=== PATIENT | female | born 1940 | race Caucasian/White ===

== ENCOUNTER 2017-10-08 07:26 | Inpatient (IN) | payer OTHER ==
--- NOTE | 2017-10-08 07:44 | EDPHY ---
H & P Stated Complaint: AMS Time Seen by Provider: 10/08/17 07:32 Constitutional: Initial Vital Signs Temperature (C) 36.8 C 10/08/17 07:35 Heart Rate 95 10/08/17 07:35 Respiratory Rate 20 10/08/17 07:35 Blood Pressure 120/64 10/08/17 07:35 O2 Sat (%) 95 10/08/17 07:35 O2 Delivery Mode Nasal Cannula O2 (L/minute) 4 Allergies/Adverse Reactions: acetaminophen [From Tylenol] Allergy (Verified 10/08/17 07:45) dexamethasone Allergy (Verified 10/08/17 07:45) hydralazine Allergy (Verified 10/08/17 07:45) hydrochlorothiazide Allergy (Verified 10/08/17 07:45) lovastatin Allergy (Verified 10/08/17 07:45) reserpine Allergy (Verified 10/08/17 07:45) Home Medications: Medication Instructions Recorded Aspirin [Aspirin 81mg (*)] 81 mg PO DAILY 10/08/17 Atorvastatin Calcium [Lipitor 20 20 mg PO HS 10/08/17 mg (*)] Clopidogrel Bisulfate [Plavix (*)] 75 mg PO DAILY 10/08/17 Cyanocobalamin [Vitamin B12 (*)] 1,000 mcg PO DAILY 10/08/17 DULoxetine [Cymbalta 30 MG (*)] 30 mg PO DAILY 10/08/17 Ferrous Sulfate [Ferrous Sulf 325 325 mg PO DAILY 10/08/17 MG (*)] Herbals/Supplements -Info Only 1 ea PO DAILY 10/08/17 Hydrocortisone 2.5% 1 estefany TP TID PRN 10/08/17 [Hydrocortisone 2.5% cream (*)] Insulin Pump, Patient Own 1 ea MISC AD 10/08/17 Levothyroxine [Synthroid 75 mcg 75 mcg PO DAILY06 10/08/17 (*)] Losartan Potassium [Cozaar 50 mg 50 mg PO DAILY 10/08/17 (*)] Metoprolol Succinate Xr [Toprol Xl 12.5 mg PO DAILY 10/08/17 25 mg (*)] Multivitamins [Multivitamin (*)] 1 each PO DAILY 10/08/17 Pantoprazole Sodium [Protonix 40mg 40 mg PO DAILY 10/08/17 (*)] levETIRAcetam [Keppra Oral Liquid] 250 mg PO BIDMEAL 10/08/17 Medical Decision Making - Diagnostics Imaging Results: Imaging Impressions Chest X-Ray 10/08/17 07:34 Impression: 1. Suspect pneumonia. Cannot exclude underlying chronic diffuse interstitial lung disease. Recommendation: Follow-up routine PA and lateral chest or portable exam with attempted improved inspiration when the patient is clinically able. Head CT 10/08/17 07:34 Impression: 1. No acute intracranial hemorrhage. 2. Post surgical change of right frontotemporal craniotomy with large area of encephalomalacia/gliosis in right frontal lobe compatible with patient's reported history of previous hemorrhagic infarct. 3. Right cerebellar and medullary well delineated low attenuation foci as described. No prior studies are available for comparison. Given no mass effect these may represent subacute/chronic infarcts, however MRI is recommended for evaluation of acute ischemia as clinically warranted. Dr. Vela was notified of these findings by telephone at 8:05 AM on 10/08/2017. Brain MRI 10/08/17 08:12 Impression: 1. 2 separate areas of acute ischemia within the right cerebellar hemisphere. There is also a small punctate area of cortical ischemia in the right parietal region. 2. Subacute left frontal ischemic infarction with gyral T1 hyperintensity. 3. Extensive remote encephalomalacia of the right frontal lobe. Prior right frontal craniotomy. Results called to Dr. Ankur Vela at 12:20 PM. Imaging: Discussed imaging studies w/ hse coordinator Radiologist ED Course/Re-evaluation: CHIEF COMPLAINT: Altered mental status HISTORY OF PRESENT ILLNESS: 77-year-old female who is an insulin-dependent diabetic. Before getting out of bed this morning her heard her insulin pump going off that noted low blood sugar. She was unarousable and her called EMS. When EMS arrived they confirm blood sugar twice. Both times it was significantly above 200. The patient was still only responsive to pain. She received an IO in the left humerus. She had stable vital signs EN route. According to the this patient was recently hospitalized for a questionable cardiac issue at [facility] was just discharged a couple days ago. EN route the patient did become slightly more arousable to voice. REVIEW OF SYSTEMS: A 10 point review of systems was performed and is negative with the exception of the elements mentioned in the history of present illness. Although the patient does not have good recollection of this morning she does not have any specific complaints at this time. PHYSICAL EXAM: HR, BP, O2 Sat, RR. Temp noted General Appearance: The more I talked to her the more arousable she becomes she is now responding to my questions and commands., well hydrated, appropriate , and non-toxic appearing. Head: Atraumatic without scalp tenderness or obvious injury Eyes: Pupils equal, round, reactive to light and accommodation, EOMI, no trauma , no injection. Ears: Clear bilaterally, no perforation, normal landmarks Nose: Atraumatic, no rhinorrhea, clear. Throat: There is no erythema or exudates, no lesions, normal tonsils, mucus membranes moist. Neck: Supple, 2+ carotid upstroke, nontender, no lymphadenopathy. Respiratory: No retractions, no distress, no wheezes, and no accessory muscle use. Lungs are clear to auscultation bilaterally. Cardiovascular: Regular rate and rhythm, no murmurs, rubs, or gallops. Bilateral carotid, radial, dorsalis pedis, and posterior tibial pulses intact. Good capillary refill all extremities. Gastrointestinal: Abdomen is soft, nontender, non-distended, no masses, no rebound, no guarding, no peritoneal signs. Musculoskeletal: Normal active ROM of all extremities, atraumatic. Neurological: Alert, appropriate, and interactive. The patient has normal DTRs and non-focal cranial nerves, motor, sensory, and cerebellar exam. Skin: No rashes, good turgor, no nodules on palpation. Past medical history: Diabetes and potential cardiac issue history is unobtainable until arrives Past surgical history: Unknown due to patient's condition Family history: Unknown due to patient's condition Social history: Unknown due to patient's condition except the fact that she lives at home with her according to EMS DIAGNOSTICS/PROCEDURES/CRITICAL CARE TIME: The 12 lead EKG was interpreted by myself. See hard copy and/or "tracemaster" electronic copy for interpretation. Anterior inverted T-waves possibly representing ischemia. I am obtaining the old EKG from [facility] from last week. Study: [CT of the head without contrast] Indication: [Altered mental status] Results: CT scan of the head was obtained. The results of the study are no acute findings except for possible brainstem findings which require MRI follow- up. The study was read by the radiologist, Dr. Art Donovan. I viewed the images myself on the PACS system. DIFFERENTIAL DIAGNOSIS: The differential diagnosis for the patient's altered mental status included but was not limited to hypoglycemia, infectious process, electrolyte abnormality, head injury, neurologic process, anemia, cardiac process, and intoxicants. MEDICAL DECISION MAKING: This patient presents with altered mental status. She does have a reasonable blood sugar so I do not believe she had a low blood sugar episode this morning although that is still certainly possible. She is becoming more more arousable. She does have a history of a hemorrhagic stroke according to her who just arrived. This patient has a nonfocal neurologic exam. She is following my commands more more the more I examine her and talk to her. Her i-STAT chemistry came back abnormal regarding the H&H but I will retest status she does not look pale. She has a slightly low potassium otherwise her kidney function and electrolytes look fine. Her or i-STAT troponin came back elevated 1.5. We are obtaining records from [facility]. EKGs from [facility] show the same changes these are old. Additionally, her repeat I-STAT shows normal blood counts. I spent a total of 30 minutes of critical care time including but not limited to obtaining history, performing a physical exam, ordering interventions and the bedside monitoring of those interventions, collecting and interpreting tests and discussion with consultants but not including time spent performing procedures. This is independent of PA or [employer] time spent with the patient. Unable to obtain urine for a UA via straight cath. Laboratory studies reflect mild dehydration. Plan to administer IVF. Patient is not septic. Vitals are within normal limits and not suggestive of sepsis. Her lactaid mildly elevated, likely due to her dehydration. I am checking a repeat lactaid due to her hypoperfusion. 09:48 Spoke with hospitalist service. Dr. Hicks accepts admission. 12:[address] Lim, radiologist. MRI brain shows two separate areas of acute ischemia within the right cerebellar hemisphere. Subacute left frontal area of ischemia. As the patient woke with symptoms, time of onset is not known. This patient does not meet criteria for stroke alert or tPA administration due to unknown onset of deficits. - Data Points Laboratory Results: Laboratory Results 10/08/17 07:35 10/08/17 07:35 10/08/17 10/08/17 10/08/17 08:25 07:44 07:35 WBC RBC Hgb POC Hgb 12.2 gm/dL L gm/dL (12.6-16.3) Hct POC Hct 36 % L % (38-47) MCV MCH MCHC RDW Plt Count MPV Neut % (Auto) Lymph % (Auto) [place] % (Auto) Eos % (Auto) Baso % (Auto) Nucleat RBC Rel Count Absolute Neuts (auto) Absolute Lymphs (auto) Absolute Monos (auto) Absolute Eos (auto) Absolute Basos (auto) Absolute Nucleated RBC Immature Gran % Seg Neutrophils % Band Neutrophils % Lymphocytes % Monocytes % Eosinophils % Basophils % Metamyelocytes % Myelocytes % Promyelocytes % Blast Cells % Immature Gran # Absolute Seg Neuts Absolute Band Neuts Absolute Lymphocytes Absolute Monocytes Absolute Eosinophils Absolute Basophils Absolute Metamyelocyte Absolute Myelocytes Absolute Promyelocytes Absolute Plasma Cells RBC/WBC/PLT Morphology Absolute Blast Cells Plasma Cells % Platelet Estimate Smear Review By PT INR APTT VBG Lactic Acid 2.7 mmol/L H mmol/L (0.7-2.1) POC Sodium 136 mEq/L mEq/L (135-145) Sodium 135 mEq/L mEq/L (135-145) POC Potassium 4.7 mEq/L mEq/L (3.3-5.0) Potassium 4.9 mEq/L mEq/L (3.3-5.0) POC Chloride 99 mEq/L mEq/L (97-110) Chloride 102 mEq/L mEq/L (97-110) Carbon Dioxide 27 mEq/l mEq/l (22-31) Anion Gap 6 mEq/L L mEq/L (8-16) POC BUN 26 mg/dL H mg/dL (7-23) BUN 28 mg/dL H mg/dL (7-23) Creatinine 1.0 mg/dL mg/dL (0.6-1.0) POC Creatinine 1.1 mg/dL H D mg/dL (0.6-1.0) Estimated GFR 53 Glucose 219 mg/dL H mg/dL (70-100) POC Glucose 225 mg/dL H mg/dL (70-100) Calcium 9.3 mg/dL mg/dL (8.5-10.4) Total Bilirubin 0.3 mg/dL mg/dL (0.1-1.4) Conjugated Bilirubin 0.0 mg/dL mg/dL (0.0-0.5) Unconjugated Bilirubin 0.3 mg/dL mg/dL (0.0-1.1) AST 30 IU/L IU/L (14-46) ALT 30 IU/L IU/L (9-52) Alkaline Phosphatase 73 IU/L IU/L (38-126) POC Troponin I NT-Pro-B Natriuret Pep 4650 pg/mL H pg/mL (0-450) Total Protein 5.0 g/dL L g/dL (6.3-8.2) Albumin 2.6 g/dL L g/dL (3.5-5.0) Lipase 29 IU/L IU/L (23-300) 10/08/17 10/08/17 10/08/17 07:35 07:35 07:32 WBC 13.74 10^3/uL H 10^3/uL (3.80-9.50) RBC 3.87 10^6/uL L 10^6/uL (4.18-5.33) Hgb 11.9 g/dL L g/dL (12.6-16.3) POC Hgb 6.1 gm/dL L gm/dL (12.6-16.3) Hct 35.8 % L % (38.0-47.0) POC Hct 18 % L % (38-47) MCV 92.5 fL fL (81.5-99.8) MCH 30.7 pg pg (27.9-34.1) MCHC 33.2 g/dL g/dL (32.4-36.7) RDW 14.2 % % (11.5-15.2) Plt Count 387 10^3/uL 10^3/uL (150-400) MPV 9.4 fL fL (8.7-11.7) Neut % (Auto) Not Reported Lymph % (Auto) Not Reported [place] % (Auto) Not Reported Eos % (Auto) Not Reported Baso % (Auto) Not Reported Nucleat RBC Rel Count Not Reported Absolute Neuts (auto) Not Reported Absolute Lymphs (auto) Not Reported Absolute Monos (auto) Not Reported Absolute Eos (auto) Not Reported Absolute Basos (auto) Not Reported Absolute Nucleated RBC Not Reported Immature Gran % Not Reported Seg Neutrophils % 38.0 % % Band Neutrophils % 8.0 % % Lymphocytes % 51.0 % % Monocytes % 0.0 % % Eosinophils % 3.0 % % Basophils % 0.0 % % Metamyelocytes % 0.0 % % Myelocytes % 0.0 % % Promyelocytes % 0.0 % % Blast Cells % 0.0 % % Immature Gran # Not Reported Absolute Seg Neuts 5.22 10^/uL 10^/uL (1.70-6.50) Absolute Band Neuts 1.10 10^3/uL H 10^3/uL (0.00-0.70) Absolute Lymphocytes 7.01 10^3/uL H 10^3/uL (1.00-3.00) Absolute Monocytes 0.00 10^3/uL L 10^3/uL (0.30-0.80) Absolute Eosinophils 0.41 10^3/uL H 10^3/uL (0.03-0.40) Absolute Basophils 0.00 10^3/uL L 10^3/uL (0.02-0.10) Absolute Metamyelocyte 0.00 10^3/mL 10^3/mL (0.00-0.00) Absolute Myelocytes 0.00 10^3/mL 10^3/mL (0.00-0.00) Absolute Promyelocytes 0.00 10^3/uL 10^3/uL (0.00-0.00) Absolute Plasma Cells 0.00 10^3/uL 10^3/uL (0.00-0.00) RBC/WBC/PLT Morphology NORMAL (NORMAL) Absolute Blast Cells 0.00 10^3/uL 10^3/uL (0.00-0.00) Plasma Cells % 0.0 % % Platelet Estimate ADEQUATE (ADEQ) Smear Review By Pending PT 14.1 SEC SEC (12.0-15.0) INR 1.07 (0.83-1.16) APTT 29.2 SEC SEC (23.0-38.0) VBG Lactic Acid POC Sodium 147 mEq/L H mEq/L (135-145) Sodium POC Potassium 2.4 mEq/L L* mEq/L (3.3-5.0) Potassium POC Chloride 117 mEq/L H mEq/L (97-110) Chloride Carbon Dioxide Anion Gap POC BUN 14 mg/dL mg/dL (7-23) BUN Creatinine POC Creatinine 0.3 mg/dL L mg/dL (0.6-1.0) Estimated GFR Glucose POC Glucose 119 mg/dL H mg/dL (70-100) Calcium Total Bilirubin Conjugated Bilirubin Unconjugated Bilirubin AST ALT Alkaline Phosphatase POC Troponin I NT-Pro-B Natriuret Pep Total Protein Albumin Lipase 10/08/17 07:31 WBC RBC Hgb POC Hgb Hct POC Hct MCV MCH MCHC RDW Plt Count MPV Neut % (Auto) Lymph % (Auto) [place] % (Auto) Eos % (Auto) Baso % (Auto) Nucleat RBC Rel Count Absolute Neuts (auto) Absolute Lymphs (auto) Absolute Monos (auto) Absolute Eos (auto) Absolute Basos (auto) Absolute Nucleated RBC Immature Gran % Seg Neutrophils % Band Neutrophils % Lymphocytes % Monocytes % Eosinophils % Basophils % Metamyelocytes % Myelocytes % Promyelocytes % Blast Cells % Immature Gran # Absolute Seg Neuts Absolute Band Neuts Absolute Lymphocytes Absolute Monocytes Absolute Eosinophils Absolute Basophils Absolute Metamyelocyte Absolute Myelocytes Absolute Promyelocytes Absolute Plasma Cells RBC/WBC/PLT Morphology Absolute Blast Cells Plasma Cells % Platelet Estimate Smear Review By PT INR APTT VBG Lactic Acid POC Sodium Sodium POC Potassium Potassium POC Chloride Chloride Carbon Dioxide Anion Gap POC BUN BUN Creatinine POC Creatinine Estimated GFR Glucose POC Glucose Calcium Total Bilirubin Conjugated Bilirubin Unconjugated Bilirubin AST ALT Alkaline Phosphatase POC Troponin I 0.15 ng/mL H ng/mL (0.00-0.08) NT-Pro-B Natriuret Pep Total Protein Albumin Lipase Medications Given: Aspirin (Aspirin) 81 mg PO DAILY ALBERTO Stop: 04/06/18 13:29 Last Admin: 10/08/17 14:36 Dose: 81 mg Discontinued Medications Sodium Chloride (Ns) 1,000 mls @ 0 mls/hr IV EDNOW ONE; Wide Open PRN Reason: Protocol Stop: 10/08/17 09:41 Last Admin: 10/08/17 10:29 Dose: 1,000 mls Point of Care Test Results: Chemistry 10/08/17 10/08/17 10/08/17 07:44 07:32 07:31 POC Sodium 136 mEq/L mEq/L 147 mEq/L H mEq/L (135-145) (135-145) POC Potassium 4.7 mEq/L mEq/L 2.4 mEq/L L* mEq/L (3.3-5.0) (3.3-5.0) POC Chloride 99 mEq/L mEq/L 117 mEq/L H mEq/L (97-110) (97-110) POC BUN 26 mg/dL H mg/dL 14 mg/dL mg/dL (7-23) (7-23) POC Creatinine 1.1 mg/dL H D mg/dL 0.3 mg/dL L mg/dL (0.6-1.0) (0.6-1.0) POC Glucose 225 mg/dL H mg/dL 119 mg/dL H mg/dL (70-100) (70-100) POC Troponin I 0.15 ng/mL H ng/mL (0.00-0.08) ISTAT H&H 10/08/17 10/08/17 07:44 07:32 POC Hgb 12.2 gm/dL L gm/dL 6.1 gm/dL L gm/dL (12.6-16.3) (12.6-16.3) POC Hct 36 % L % 18 % L % (38-47) (38-47) Departure - Departure Disposition: [facility] Inpatient Acute Clinical Impression: Altered mental status Qualifiers: Altered mental status type: unspecified Qualified Code(s): R41.82 - Altered mental status, unspecified Condition: Fair Report Scribed for: Ankur Vela Report Scribed by: Brianna Iqbal Date of Report: 10/08/17 Time of Report: 09:48
[2017-10-08 07:49] LABS: PLATELET COUNT 387 10^3/uL (150-400)
[2017-10-08 07:58] LABS: INR 1.07 (0.83-1.16); PROTIME(PATIENT) 14.1 SEC (12.0-15.0)
[2017-10-08] MEDS ORDERED: NS 1,000 ML IV ONE (09:40)
[2017-10-08] MEDS ORDERED: LABETALOL HCL 5 MG/ML 20 ML MDV IVP PRN (13:22)
[2017-10-08] MEDS ORDERED: HYDROCORTISONE 2.5% 30 GM CRTUBE TP PRN (13:25)
[2017-10-08] MEDS: ASPIRIN 81 MG CHEWABLE TAB PO SCH (14:36)
[2017-10-08] MEDS ORDERED: D50W 25 GM/50 ML VIAL IVP PRN (18:30)
[2017-10-08] MEDS: levETIRAcetam 250 MG TAB PO SCH (18:37)
--- NOTE | 2017-10-08 19:19 | PDGENHP ---
History and Physical History and Physical: CC: Decreased responsiveness at home today, question possible hypoglycemia HISTORY: The patient's history is obtained mostly through her as the patient has significant difficulty providing any accurate detailed information. She does state that she feels comfortable without any pain rate at this time but I am unable to get any other direct information from her This patient who has a previous hemorrhagic stroke history, was admitted to [facility] about 5 days ago when her found her to be having lightheadedness dizziness and a little more unsteady on her feet than usual. He is not really able to give me very accurate details of what happened at the hospital there. However he does bring the the discharge instructions which indicate that her discharge diagnoses included NSTEMI, AND DIABETES. During her hospitalization however it is very clear that there was concern for cardiac problems as coronary angiography was strongly recommended to them by the burial needs salesperson involved. The does not recall any chest pain heart failure or arrhythmia problems. He does not recall whether not there was heart failure. However he states there was an echocardiogram done but does not recall the results of this. The patient had declined angiography according to the . On the discharge medication list from the outside hospital Plavix 75 mg and aspirin 81 mg are both new medications for her, and believes she was getting them at the hospital but she had not gotten a dose yet at home today. They were discharged from the hospital yesterday arriving home at 5:00 p.m. yesterday. The states the patient was not quite back to normal but was doing much better. She ate some dinner and went to bed. Around 5 o'clock this morning the alarm on the patient's insulin pump rang to indicate a low sugar and woke up looked at the monitor and found a blood sugar of 65 indicated. He gave her 10 carbohydrate equivalents worth of dextrose tablets. He says that she seemed sleepy but did arouse. He did not make any more significant assessment than that and they both went back to sleep. A couple hours or so later the patient's woke up and looked at the patient who was sleeping. As he went to arouse her he found that she did arouse but she was significantly less responsive than usual. He looked at her insulin pump which indicated a blood sugar of 160 and he checked a fingerstick which confirmed this blood sugar. He called for paramedics who found her to have a blood sugar of 200. There were no definite focal neurologic findings. The patient however was not speaking. She was brought to the ER by ambulance and apparently became a little bit more alert on the way. In the ER she gradually did become somewhat more alert did a little bit of speaking and followed some commands but clearly was not back at her baseline. Blood sugars again here were not low. In the ER it was not felt that she had any focal deficits, but a CT scan was ordered which showed her previous evidence of encephalomalacia and surgical changes from hemorrhagic infarct right frontal lobe; additionally there was some hypodensities in the right cerebellum and medulla of uncertain chronicity. Patient was admitted to the [facility] floor and I am now examining her there. The states that after the hemorrhagic infarct the patient had left- sided weakness that is gradually gotten better but she is needing a chronically a walker for ambulation and a little bit slow at times in conversation. She is somewhat active however and eats well, feeds herself with food placed in front of her ROS: A comprehensive 10 system review revealed no other significant findings PAST MEDICAL HISTORY: Hemorrhagic stroke as above Seizures after this event on 1 occasion but none since, on chronic Keppra Recent hospitalization elsewhere with suspicion for acute coronary syndrome with angiography recommended but declined by patient Diabetes mellitus type 1 on insulin pump Hyperlipidemia Hypertension Heart murmur Iron deficiency Hypothyroidism on therapy FAMILY MEDICAL HISTORY: not aware of any current relevant issues in the patient's family SOCIAL HISTORY: lives at home with her who is her senior construction project manager Walks with a walker Has previously signed documents stating she wishes DNR per the MEDICATIONS: The patients list has been reconciled by our clinical pharmacist in the EMR. I have reviewed the list and ordered appropriate medicines. PHYSICAL EXAMINATION: Vital Signs: Stable without fever Correction Worker: Not yet hooked up during my examination Patient awake and makes eye contact with me, attempts to answer some questions but unable to get much out. Unable to tell me where she is, what day it is, how she feels other than this a she denies pain. Some mild weakness in left upper extremity but no other definite focal weakness but severe generalized weakness in the upper extremities. No cranial nerve abnormalities or pupillary abnormalities. Speech is slightly slurred. The slowness of speech and slurring are clearly abnormal of compared to her recent baseline Skin: warm, dry, good color, no rash HEENT: normal Neck: no mass or jvd Resps: relaxed Lungs: clear breath sounds Heart: regular, no murmur Abdomen: soft, nondistended, nontender, +BS, no mas IV site: looks normal LABORATORY DATA: BUN slightly high otherwise unremarkable basic met panel and liver panel BNP 4650 Albumin 2.6 Minimal elevation of troponin at 0.15 No hypoglycemia here some hyperglycemia so far White blood cell count 45229 mild anemia 11.9 normal platelets Mildly elevated lactic acid at 2.7 RADIOLOGY STUDIES: MRI: I reviewed images of none contrast MRI of the brain done today which show several acute to subacute infarcts in right and left brain including both cerebral and cerebellar locations. There is no evidence of hemorrhage, but evidence of her old hemorrhagic stroke in surgery or apparent on the right frontal area CHEST X-RAY: I have also reviewed images from a portable chest x-ray done in the ER today which showed diffuse bilateral lung abnormalities consistent with either pulmonary edema or more likely interstitial lung disease. Heart does not appear enlarged and there are no effusions, inspiratory effort is very poor and the study was probably exaggerates the lung abnormalities though they appear moderately severe. I have no previous x-rays to compare 12 LEAD EKG: None done here at this time ASSESSMENT: * acute and subacute strokes occurring over the last several days with multiple small strokes scattered on right and left brain in both cerebral and cerebellar locations * deficits from these lesions are impaired ambulation and balance, impaired mentation and language functions, suspect her left upper extremity weakness may be old but could not rule out some mild acute left upper extremity weakness * recent admission to outside hospital does not mention diagnosis of stroke in patient's discharge instructions given to her, though she was placed on Plavix for uncertain reasons unless stroke was suspected, the was unaware of a diagnosis of suspected stroke * NSTEMI was diagnosed at the other hospital with recommendation for angiography declined by the patient; the patient's was not told of a diagnosis of heart failure nor was it listed in her discharge instructions * mild hypoglycemic episode this morning at home on her insulin pump * previous DNR wishes and patient's declining of recommended angiography a couple days ago indicate significant limitations in her desire for any aggressive diagnostic or treatment measures PLANS: * Inpatient admission * Continue DNR per patient's longstanding wishes * She is not a candidate for tPA given the time course of her presentation as above * Will provide other stroke assessment and preventive measures within reason given the patient's desire to decline aggressive diagnostic or treatment measures * For now will use sliding scale and as needed treatment for her sugars to avoid hypoglycemia as the nurses here unfamiliar with her particular insulin pump and would not be able to manage appropriately in the 's absence * NPO until we get a swallow assessment * If unable to swallow will give IV fluids * Attempting get previous records from [facility] to get more detail of what actually was found or suspected and recommended or done there * Will not do another echocardiogram here in this I can't get results from the echocardiogram there * At this time she is not short of breath that she can tell me of, and appears very comfortable breathing on 2 L nasal cannula during my exam. She does not appear in respiratory distress or discomfort. Her chest x-ray shows possible pulmonary edema but I will not immediately treat that until I can find out more about previous x-rays and her echocardiogram results. She does have an elevated BNP which could be due to pulmonary edema or chronic lung disease. She has a minimal elevation of troponin here but that may be decreased from what was seen recently when she was diagnosed with non STEMI * Neurology consult here * PT and OT * Permissive hypertension per protocol * Will need to decide whether there reasons to consider anticoagulation and whether that would be in her best interest overall I have reviewed the patient's case in detail with Dr. Armand Wren
[2017-10-08] MEDS: ATORVASTATIN CALCIUM 20 MG TAB PO SCH (20:44)
[2017-10-08] MEDS: INSULIN REGULAR HUMAN 100 UNIT/ML UNIT SC SCH (21:27)
[2017-10-09] MEDS: LEVOTHYROXINE 75 MCG TAB PO SCH (06:14)
--- NOTE | 2017-10-09 08:04 | GCON ---
[f rep st] CONSULTATION NEUROLOGIC CONSULTATION REFERRING PHYSICIAN: Logan Hicks HISTORY: The patient is a 77-year-old woman who I am asked to see in neurologic consultation regardi ng stroke. The history is reviewed from the patient, although she is unable to provide much detail. I reviewed the emergency room visit and history and physical from Dr. Hicks. Currently, the patien verna is lying in the bed and does not have any specific complaints. She is aware that she has had a str refugio, but is unable to provide details about the events over the last 24 hours. She came to the [facility] for altered mental state. Apparently, before getting out of bed in the morning yesterday, her hu raina heard her insulin pump and that prompted him to check on her and she was poorly responsive and EMS came to check on her, but her blood sugar was not low. She was brought to the emergency room and we found that she had just been discharged from [facility] the day before. In further clarification, she had been admitted the day before hospitalization here at 5 p.m. She was not back to normal by 's reports, but had done better than when she originally presented to [facility]. He clarified that she was hard to arouse when he checked on her yesterday morning. Taylor rousseau started to become more alert in the emergency department, but she was not back to her baseline. In formation we have from [facility] where she had been in there about 5 days earlier with lighthead edness and dizziness. Apparently, she had a diagnosis of non-STEMI infarction and diabetes. Apparen tly, she had declined recommendation for coronary angiography. She was placed on Plavix and aspirin. Historically, she has a prior history of hemorrhagic stroke with apparent right frontal craniectomy , but I do not know exactly when this occurred. She apparently had a seizure after this on 1 occasio n and is on Keppra therapy. There is coronary disease recently found and a history of diabetes, hype rlipidemia, hypertension, cardiac murmur, and hypothyroidism. Patient is denying chest pain, palpita tions or shortness of breath, or any focal pain or numbness. Per information from the , she h ad left-sided weakness from her stroke and can be slow in her language skills but is usually able to feed herself when food is given to her. FAMILY HISTORY: Noncontributory. SOCIAL HISTORY: She lives at home with who is her bean snapper and ambulates with a walker. CURRENT MEDICATIONS: Aspirin, Lipitor, Plavix, Cymbalta, Lovenox, insulin, Synthroid, Keppra, Toprol , vitamin B12. ALLERGIES: To dexamethasone, Tylenol, hydralazine, hydrochlorothiazide, lovastatin, reserpine. PHYSICAL EXAMINATION: Blood pressure is 147/73, pulse of 98, respirations 20, temperature 37.1. GEN ERAL: She is an older woman lying in the bed in no acute distress. NECK: Supple with no bruits or masses. CARDIAC EXAM: Regular rate and rhythm with 2/6 systolic murmur. She is awake, mildly pedrito rgic, with unsustained attention but able to communicate with me with brief responses usually and malagon s not generate much spontaneous speech. She is not oriented. She thought she was at [facility]. She stated the month was July and the year 2003. She is aware that she has had stroke. S he does not have difficulty following basic commands. Pupils 2 mm and reactive. Extraocular movemen ts are intact. Normal facial sensation and strength. Palate elevates symmetrically and tongue protr udes midline. Hearing is preserved. The motor examination reveals mild weakness of the left upper e xtremity in the 4/5 range and less consistent on the lower extremities for any asymmetry. She is ej bally mildly weak, but I do not detect other focal weakness. She is not ataxic on [id number]. R eflexes 1+. Sensation is preserved for temperature and light touch, although she says it is differen t, but has a hard time telling me why it is different. The patient's NIH Stroke Scale is 4. LABORATORY STUDIES: Show LDL cholesterol of 41, HDL cholesterol of 29, otherwise unremarkable labs e xcept for some elevations of blood glucose. White count of 13,000, hematocrit 36%, platelets 387,000 . The brain MRI and head CT were reviewed. She has areas of acute ischemic change in the right cere bellar hemisphere and punctate area of cortical ischemia in the right parietal region and subacute le ft frontal ischemic infarction. There is also encephalomalacia in the right frontal lobe where she h as had prior right frontal craniotomy. IMPRESSION: Total unit time of 70 minutes. The patient has experienced acute ischemic stroke with t he exact onset unclear, but could have been as recently as the last 24 hours, but even with altered m ental state in the last week, could have had ischemic changes then because diffusion-weighted imaging can last as long as 3 weeks. I do not know if MRI was performed when she was at [facility] for clarification on whether there was any acute stroke at that point. In any case, she was not felt to be a candidate for tPA given some of the uncertainty of onset of deficits. She has a histor y of hemorrhagic stroke and that would make anticoagulation generally contraindicated. The use of du al antiplatelet therapy in the setting of coronary artery disease and stroke is reasonable, although there is significant risk for hemorrhagic stroke with her prior history, and risks and benefits are b eing considered of course. At this point, it seems reasonable to continue both. The exact mechanism for her ischemic changes is uncertain. Coronary-related embolic phenomena are differential consider ations. Other vascular studies might show significant large-vessel stenoses but have not been pursue d. In general, the approach has been trying to limit extensive interventions by review of the inform ation I have. It is appropriate for now to simply treat and see how much more extensive workup might be recommended per her or what he would like to pursue on her behalf. She is apparently fol lowed at [facility] and is in a stable condition where she could be transferred if appropriate. I will bobbi garcias to monitor her progress. /[id number]/MODL
[2017-10-09] MEDS: levETIRAcetam 250 MG TAB PO SCH ×2 (09:38→18:28)
[2017-10-09] MEDS: ASPIRIN 81 MG CHEWABLE TAB PO SCH (09:38)
[2017-10-09] MEDS: METOPROLOL SUCCINATE XR 25 MG TAB PO SCH (09:38)
[2017-10-09] MEDS: DULoxetine 30 MG CAP PO SCH (09:39)
[2017-10-09] MEDS: PANTOPRAZOLE SODIUM 40 MG TAB PO SCH (09:39)
[2017-10-09] MEDS: CLOPIDOGREL BISULFATE 75 MG TAB PO SCH (09:39)
[2017-10-09] MEDS: CYANO/VITAMIN B12 1000 MCG TAB PO SCH (09:39)
[2017-10-09] MEDS: MULTIVITAMINS 1 EACH TAB PO SCH (09:40)
[2017-10-09] MEDS: FERROUS SULFATE 325 MG TAB PO SCH (09:40)
[2017-10-09] MEDS: ENOXAPARIN 40 MG/0.4 ML SYR SC SCH (09:40)
[2017-10-09] MEDS: INSULIN REGULAR HUMAN 100 UNIT/ML UNIT SC SCH ×4 (09:41→21:01)
--- NOTE | 2017-10-09 09:44 | PDMN ---
Medical Necessity Medical necessity: [facility] M83 Stroke, Ischemic: 77 y/o admitted to IP dx with acute ischemic stroke.
--- NOTE | 2017-10-09 13:00 | HOSPPROG ---
Hospitalist Progress Note Assessment/Plan: #Acute vs Subacute CVA -Involving cerebellar and parietal regions -Neuro following -cont both Plavix and Aspirin -RF modification: Sh has a hx of IDDM. Lipid panel was c/w with LDL at goal -Cont Tele, no e/o Afib -Check TTE today #Generalized weakness, impaired ambulation, impaired mentation, impaired language functions, impaired left upper extremity weakness. -PT/OT evals #Hx of Hemorrhagic Stroke -She is not a candidate for AC -She is a risk of bleed with Aspirin and Plavix and this was explained to the family by Neuro per their note #Recent NSTEMI -diagnosed at [facility] w/i the last few days -apparently refused angiography -cont with Plavix and Aspirin -No e/o heart failure. She is euvolemic #HTN -cont BB -Holding PREETI-I for now. If BP elevated, can restart it tomorrow #IDDM and hyperglycemia -Glucose has been labile -cont with current mgmt -she does have an insulin pump but she is not capable of managing this. Her is not with her currently #Leukocytosis -etiology unclear, afebrile, does not appear to have an infectious etiology -she does not have any new resp issues or urinary complaints -will check a PC #Chronic resp failure -she reports that she is on supplemental O2 at home. Appears to be at baseline. #Seizure disorder: cont Abena Juarezx DNR cont inpatient Objective: Vital Signs Temp Pulse Resp BP Pulse Ox 36.7 C 97 35 H 134/76 H 98 10/09/17 12:03 10/09/17 12:03 10/09/17 12:03 10/09/17 12:03 10/09/17 12:03 Laboratory Results 10/09/17 05:14 10/08/17 10/09/17 10/10/17 05:59 05:59 05:59 Output Total 2 Balance -2 PT 14.1 SEC (12.0-15.0) 10/08/17 07:35 INR 1.07 (0.83-1.16) 10/08/17 07:35 - Physical Exam Constitutional: no apparent distress, chronically ill appearing Eyes: PERRL, EOMI Ears, Nose, Mouth, Throat: moist mucous membranes Cardiovascular: regular rate and rhythym, No edema Respiratory: no respiratory distress, no rales or rhonchi, clear to auscultation Gastrointestinal: normoactive bowel sounds, soft, non-tender abdomen Skin: warm Musculoskeletal: generalized weakness Neurologic: No AAOx3 Psychiatric: interacting appropriately, not anxious, encephalopathic Lymph, Heme, Immunologic: No petechiae ICD10 Worksheet Patient Problems: Problems Problem Status Onset Altered mental status Acute
--- NOTE | 2017-10-09 15:07 | ASMTCMCOM ---
CM Note CM Note Notes: Spoke to pt and re; dc poc. PT recommending SNF, pt's politely declines in large part because of pt's insulin pump. He does not feel that a rehab can adequately monitor it there. He prefers pt to return home with [facility] and their private pay caregiver who is there 8hrs/day 5 days/week. DC Plan: Homecare/ [facility] + private caregiver Date Signed: 10/09/2017 03:06 PM Electronically Signed By:Sandra Villegas RN
--- NOTE | 2017-10-09 16:29 | ECHO ---
[email or web address] [address] Main: [phone] Fax: Transthoracic Echocardiogram Name: JEFFERY YEE MR#: [id number] Study Date: 10/09/2017 Study Time: 01:27 PM Date of : 1940 Age: 77 year(s) Height: 152.4 cm (60 in.) Weight: 46.72 kg (103 lb.) BSA: 1.41 m2 Gender: Female Examination: Echo Indication: stroke, CHF Image Quality: Adequate Contrast: Requested by: Collins Ladd BP: 134 mmHg/76 mmHg Heart Rate: Rhythm: Indication: stroke, CHF Procedure Staff Bronze Chaser: Fani Fisher [facility] Reading Physician: Zach Hawkins MD Requesting Provider: Conclusions: Normal size left ventricle. There is a sigmoid shaped septum is present, which is a normal finding in the elderly. . EF is 59 %. No regional wall motion abnormality. Grade 1 diastolic dysfunction (abnormal relaxation). There is mild thickening of the mitral valve leaflets. Mild-moderate mitral annular calcification. Trivial mitral valve regurgitation. Mild aortic cusp calcification is noted. There is no aortic valve regurgitation. No aortic valve stenosis is present. Mild to moderate tricuspid valve regurgitation. Right ventricular systolic pressure measures 53mmHg. No pericardial effusion. No prior study for comparison. Measurements: Chambers Valvular Assessment AV/MV Valvular Assessment TV/PV Normal Normal Normal Name Value Range Name Value Range Name Value Range Ao Suyapa (MM): 3.0 cm (2.2 cm-3.7 AV Vmax: 1.82 m/s (1 m/s-1.7 TR Vmax: 3.28 mm/s ( - ) cm) m/s) TR PGmax: 43 mmHg ( - ) IVSd (2D): 1.1 cm (0.6 cm-1.1 AV maxP mmHg ( - ) syst. PAP: 53 mmHg ( - ) cm) LVOT Vmax: 0.84 m/s (0.7 m/s-1.1 PV Vmax: 0.57 m/s (0.6 m/s-0.9 LVDd (2D): 3.3 cm (3.9 cm-5.3 m/s) m/s) cm) FORREST (Vmax): 1.3 cm2 ( - ) PV PGmax: 1 mmHg ( - ) LVDs (2D): 2.0 cm (2.1 cm-4 MV E Vmax: 0.70 m/s ( - ) cm) MV A Vmax: 1.12 m/s ( - ) LVPWd (2D): 0.9 cm ( - ) MV E/A: 0.62 ( - ) LVOTd 1.9 cm 1.9 cm mm Patient: JEFFERY YEE Study Date: 10/09/2017 Page 1 of 2 01:27 PM LVEF (MOD4): 59 % (>=55 %) RVDd(2D): 3.6 cm (1.9 cm-3.8 cmmm) Continued Measurements: Chambers Valvular Assessment AV/MV Valvular Assessment TV/PV Name Value Name Value Name Value LADs: 3.7 cm MV DecTime: 183 m/s CVP (est.): 10 mmHg LADs Lon.6 cm MV E' Septal: 0.04 m/s LA Area: 18.4 cm2 MV E/E' Septal: 20.00 LA Volume: 44 ml MV E/E' Lateral: 16.00 LA Volume Index: 31.2 ml/m2 TAPSE: 1.5 cm RA Area: 12.7 cm2 Additional Vessels Name Value Ao Ascendin.7 cm Findings: Left Ventricle: Normal size left ventricle. There is a sigmoid shaped septum is present, which is a normal finding in the elderly. . Normal global systolic LV function. EF is 59 %. No regional wall motion abnormality. Grade 1 diastolic dysfunction (abnormal relaxation). Right Ventricle: Upper normal size right ventricle. Mildly reduced RV function. Left Atrium: The left atrium is normal in size. Right Atrium: The right atrium is normal in size. Mitral Valve: There is mild thickening of the mitral valve leaflets. Mild-moderate mitral annular calcification. Trivial mitral valve regurgitation. No mitral stenosis is present. Aortic Valve: The aortic valve is tri-leaflet. Mild aortic cusp calcification is noted. There is no aortic valve regurgitation. No aortic valve stenosis is present. Tricuspid Valve: The tricuspid valve is normal in appearance and function. Mild to moderate tricuspid valve regurgitation. Right ventricular systolic pressure measures 53mmHg. The pulmonary artery pressure is moderately increased. Pulmonic Valve: The pulmonic valve is normal in appearance and function. Trivial pulmonic valve regurgitation. Aorta: Normal size aortic root measuring 3.0 cm. Normal size ascending aorta measuring 2.7 cm. IVC: The IVC is dilated. Pericardium: No pericardial effusion. (No Signature Object) Patient: JEFFERY YEE Study Date: 10/09/2017 Page 2 of 2 01:27 PM [id number]
--- NOTE | 2017-10-09 16:56 | ASMTCMCOM ---
CM Note CM Note Notes: Pt's wanted to speak with CM again, he talked with pt's sister and they think that SNF is a better idea, CM will send referral to [facility] for authorization. Date Signed: 10/09/2017 04:55 PM Electronically Signed By:Sandra Villegas RN
[2017-10-09] MEDS: ATORVASTATIN CALCIUM 20 MG TAB PO SCH (20:50)
[2017-10-10] MEDS: LEVOTHYROXINE 75 MCG TAB PO SCH (06:17)
[2017-10-10] MEDS: IBUPROFEN SUSP 100 MG/5 ML UDCUP PO PRN (06:17)
--- NOTE | 2017-10-10 07:46 | NEUROPROG ---
Assessment: total unit time of 15 minutes. She is about the same with cognitive impairment after new strokes. Stable for discharge to SNF or whatever is needed and family choice. Ok to transfer to [place] if follow there. Subjective: patient reports feeling dizzy Objective: Vital Signs Temp Pulse Resp BP Pulse Ox 36.8 C 74 16 121/78 H 96 10/10/17 07:20 10/10/17 07:20 10/10/17 07:20 10/10/17 07:20 10/10/17 07:20 Laboratory Results 10/09/17 13:38 10/09/17 10/10/17 10/11/17 05:59 05:59 05:59 Intake Total 700 Output Total 2 700 Balance -2 0 PT 14.1 SEC (12.0-15.0) 10/08/17 07:35 INR 1.07 (0.83-1.16) 10/08/17 07:35 She is awake but poor attention and is not oriented but follows simple commands. Echo shows no embolic source. Allergies/Adverse Reactions: acetaminophen [From Tylenol] Allergy (Verified 10/08/17 07:45) dexamethasone Allergy (Verified 10/08/17 07:45) hydralazine Allergy (Verified 10/08/17 07:45) hydrochlorothiazide Allergy (Verified 10/08/17 07:45) lovastatin Allergy (Verified 10/08/17 07:45) reserpine Allergy (Verified 10/08/17 07:45)
--- NOTE | 2017-10-10 09:17 | WOCRNPDOC ---
WOCRN Advanced Assessment Note - Skin Integrity Problem, Advanced Assess Sacrum Dressing Type: Open to Air Alexia Wound Tissue: Blanching, Erythema, Thin Alexia Wound Swelling: None Wound Bed Color: Munday Site Measurement - Head-to-Toe Length X Width X Depth (cm): 5.4x3.6xintact Skin Integrity Problem Comment: Patient rolled unaided to her right side. Calazime cream gently wiped away with a bath tissue. Skin over the sacrum and coccyx remains intact and blanching but tender. Of note, patient is incontinent. Wound care will not continue to round. Please reconsult as needed.
--- NOTE | 2017-10-10 09:26 | HOSPPROG ---
Hospitalist Progress Note Assessment/Plan: #Acute vs Subacute CVA: Involving cerebellar and parietal regions. Manifestations per below -Neuro following -cont Plavix and Aspirin -TTE without embolic source -Tele without afib, will continue while inpatient #Generalized weakness, impaired ambulation, impaired mentation, impaired language functions, impaired left upper extremity weakness. -PT/OT recommending SNF, pt's now agreeable to this, CM following #Hx of Hemorrhagic Stroke -She is not a candidate for AC #Recent NSTEMI: Diagnosed at [facility] w/i the last few days, apparently refused angiography. Euvolemic on exam. -cont with Plavix and Aspirin, statin #HTN: BP mildly elevated but within reasonable range for her age -cont BB, if SBP persistently >160 can consider adding ACEi #IDDM and hyperglycemia: BG remains elevated -increase to high dose SSI -she typically uses an insulin pump but in incapable of managing this now; may be better suited to basal/bolus insulin long-term #Leukocytosis: Etiology unclear, afebrile, does not appear to have an infectious etiology - Monitor #Chronic resp failure -she reports that she is on supplemental O2 at home. Appears to be at baseline. #Seizure disorder: cont Keppra Lovenox DNR cont inpatient until transfer to SNF Subjective: Feeling ok this morning. Still having some mild dizziness and nausea. No pain. Objective: Vital Signs Temp Pulse Resp BP Pulse Ox 36.8 C 74 16 121/78 H 96 10/10/17 07:20 10/10/17 07:20 10/10/17 07:20 10/10/17 07:20 10/10/17 07:20 Laboratory Results 10/09/17 13:38 10/09/17 10/10/17 10/11/17 05:59 05:59 05:59 Intake Total 700 Output Total 2 700 Balance -2 0 PT 14.1 SEC (12.0-15.0) 10/08/17 07:35 INR 1.07 (0.83-1.16) 10/08/17 07:35 - Physical Exam Constitutional: no apparent distress, appears nourished, not in pain Ears, Nose, Mouth, Throat: moist mucous membranes, hearing normal, ears appear normal, no oral mucosal ulcers Cardiovascular: regular rate and rhythym, no murmur, rub, or gallop Respiratory: no respiratory distress, no rales or rhonchi, clear to auscultation Gastrointestinal: normoactive bowel sounds, soft, non-tender abdomen, no palpable masses Neurologic: other (alert, answering simple questions but not oriented) ICD10 Worksheet Patient Problems: Problems Problem Status Onset Altered mental status Acute
[2017-10-10] MEDS: INSULIN LISPRO 100 UNIT/ML SC SCH ×3 (09:39→16:39)
[2017-10-10] MEDS: ENOXAPARIN 40 MG/0.4 ML SYR SC SCH (09:42)
[2017-10-10] MEDS: PANTOPRAZOLE SODIUM 40 MG TAB PO SCH (09:43)
[2017-10-10] MEDS: FERROUS SULFATE 325 MG TAB PO SCH (09:43)
[2017-10-10] MEDS: ASPIRIN 81 MG CHEWABLE TAB PO SCH (09:44)
[2017-10-10] MEDS: MULTIVITAMINS 1 EACH TAB PO SCH (09:44)
[2017-10-10] MEDS: CLOPIDOGREL BISULFATE 75 MG TAB PO SCH (09:44)
[2017-10-10] MEDS: METOPROLOL SUCCINATE XR 25 MG TAB PO SCH (09:44)
[2017-10-10] MEDS: DULoxetine 30 MG CAP PO SCH (09:45)
[2017-10-10] MEDS: CYANO/VITAMIN B12 1000 MCG TAB PO SCH (09:45)
[2017-10-10] MEDS: levETIRAcetam 250 MG TAB PO SCH ×2 (09:45→17:57)
[2017-10-10] MEDS: INSULIN REGULAR HUMAN 100 UNIT/ML UNIT SC SCH (11:52)
--- NOTE | 2017-10-10 15:21 | ASMTCMCOM ---
CM Note CM Note Notes: Pt received auth from [facility] for SNF, pt's wanted referral to go to [facility]. Authorization# [id number] DC Plan: SNF Date Signed: 10/10/2017 03:20 PM Electronically Signed By:Sandra Villegas RN
[2017-10-10] MEDS: ARNICA TP PRN (19:33)
[2017-10-10] MEDS: ATORVASTATIN CALCIUM 20 MG TAB PO SCH (21:10)
[2017-10-11] MEDS: ARNICA TP PRN (02:57)
[2017-10-11] MEDS: IBUPROFEN SUSP 100 MG/5 ML UDCUP PO PRN (04:16)
[2017-10-11 05:02] LABS: CREATINE KINASE 22 IU/L (0-156)
[2017-10-11] MEDS: NITROGLYCERIN 0.4 MG BTL SL PRN ×2 (05:08→05:19)
--- NOTE | 2017-10-11 05:24 | HOSPPROG ---
Hospitalist Progress Note Assessment/Plan: Hospitalist night float note Called by RN regarding patient complained of new chest pain. Patient chart reviewed and including from [facility] with recent admission discharge 10/08/2017 for NSTEMI. Came to bedside. Patient is a limited historian due to history of multiple strokes and now admission for acute versus subacute ischemic CVA. She has a previous history of hemorrhagic CVA with resulting cognitive deficits. Patient is able to describe substernal chest pain that just recently started. It is a little difficult to ascertain if this could be related to heartburn versus angina as when patient is asked if this feels like reflux previously or more like her heart attack in the last several days patient responds yes to all questions. Stat EKG was obtained and reviewed. Shows normal sinus rhythm in the 80s. T- wave inversions in leads V 1 through V5 and III. I am not able to locate the admitting EKG for comparison at this time. Echocardiogram recently obtain did not show any acute wall motion abnormalities. Patient did present with large T-wave inversions in leads V1 to 3. Per discharge summary from [facility] patient continued to have persistent T-wave inversions but less than 1 mm. Stat cardiac labs obtained as per protocol and pending. Chest x-ray was obtained and pending. Patient does have a history of ILF and severe pulmonary hypertension but currently is saturating well with supplemental oxygen 4 liters/minute. VS reviewed. General-pleasant frail elderly female is lying up in bed with her eyes closed but awake. She is sitting quite still but does appear anxious and she is tapping her right finger on her sheets. CV-regular rate and rhythm. No murmurs rubs or gallops. No chest wall tenderness to palpation Respiratory - air movement is diminished in all lung schulz. No wheezing or rhonchi. Unlabored breathing. Nasal cannula in place. Abdomen-hypoactive bowel sounds soft Extremities-no cyanosis clubbing or edema appreciated. Has pedal pulses. Neuro - patient with some left-sided weakness. She keeps her eyes closed but does answer questions and will open eyes and follow simple commands. Psych - patient is not agitated. Pleasant and cooperative. Plan - when available review x-ray and cardiac labs. Also will obtain morning labs. Will give the patient a dose of nitroglycerin sublingual. Morphine p.r.n. If symptoms persist also consider trial of GI cocktail given patient's complaint of reflux type symptoms as well. Patient with previous Cardiology evaluation in given her age, poor overall functional status, history of hemorrhagic and now ischemic stroke she is not a prime candidate for cardiac intervention in this was decided to continue with medical management. Patient does likely have underlying multi-vessel disease given her history of type 1 diabetes and multiple comorbidities. Objective: Vital Signs Temp Pulse Resp BP Pulse Ox 36.5 C 88 16 154/85 H 96 10/11/17 00:00 10/11/17 00:00 10/11/17 00:00 10/11/17 00:00 10/11/17 00:00 Laboratory Results 10/09/17 13:38 10/09/17 10/10/17 10/11/17 05:59 05:59 05:59 Intake Total 700 450 Output Total 2 700 Balance -2 0 450 PT 14.1 SEC (12.0-15.0) 10/08/17 07:35 INR 1.07 (0.83-1.16) 10/08/17 07:35 ICD10 Worksheet Patient Problems: Problems Problem Status Onset Altered mental status Acute
[2017-10-11] MEDS ORDERED: NS 500 ML IV ONE (05:30)
[2017-10-11] MEDS ORDERED: NS 1,000 ML IV SCH ×2 (05:30→14:15)
[2017-10-11] MEDS ORDERED: INSULIN LISPRO 100 UNIT/ML SC ONE (06:02)
[2017-10-11] MEDS: LEVOTHYROXINE 75 MCG TAB PO SCH (06:25)
[2017-10-11 07:30] LABS: PLATELET COUNT 352 10^3/uL (150-400)
--- NOTE | 2017-10-11 10:14 | HOSPPROG ---
Hospitalist Progress Note Assessment/Plan: #Chest pain: Patient poor historian so difficult to assess. Initial ECG with rather diffuse TWI, reportedly consistent with prior. Troponin mildly elevated. Of note, she had NSTEMI last week and elected for medical management, which is reasonable given her comorbid conditions. -Repeat troponin/ECG at noon -She is already on aspirin, plavix, statin -Attempted to call to discuss potential treatment options if this truly is another ACS. Will attempt to call again later #Acute on chronic resp failure: Now requiring 4L up from 2L baseline and appears tachypneic. - CXR with bilateral (R>L opacities) that appear stable; shre reportedly carries a diagnosis of IPF - If trop stable/improved, will plan to trial gentle diuresis - Holding on antibiotics and steroids for time being #Acute vs Subacute CVA: Involving cerebellar and parietal regions. Manifestations per below -Neuro following -cont Plavix and Aspirin -TTE without embolic source -Tele without afib, will continue while inpatient #Generalized weakness, impaired ambulation, impaired mentation, impaired language functions, impaired left upper extremity weakness. -PT/OT recommending SNF, pt's now agreeable to this, CM following #Hx of Hemorrhagic Stroke -She is not a candidate for therapeutic AC #Recent NSTEMI: Diagnosed at [facility] w/i the last few days, apparently refused angiography. Euvolemic on exam. -cont with Plavix and Aspirin, statin #HTN: BP mildly elevated but within reasonable range for her age -cont BB, if SBP persistently >160 can consider adding ACEi #IDDM and hyperglycemia: BG remains elevated -continue high dose SSI -she typically uses an insulin pump but in incapable of managing this now; may be better suited to basal/bolus insulin long-term #Leukocytosis: Improved. Etiology unclear, afebrile, does not appear to have an infectious etiology - Monitor #Seizure disorder: cont Abena Noland DNR cont inpatient for evaluation of chest pain and resp failure. plan to DC to SNF once stabilized, hopefully in next 24 hours Subjective: When asked how she was feeling, she stated "I'm having numbness in my legs." After pressing her about chest pain, she says it is improved from earlier and not really present. She does feel like her breathing is a bit more labored. Objective: Vital Signs Temp Pulse Resp BP Pulse Ox 36.8 C 77 16 116/67 97 10/11/17 08:00 10/11/17 08:00 10/11/17 08:00 10/11/17 08:00 10/11/17 08:00 Laboratory Results 10/11/17 07:05 10/11/17 07:05 10/10/17 10/11/17 10/12/17 05:59 05:59 05:59 Intake Total 700 700 Output Total 700 Balance 0 700 PT 14.1 SEC (12.0-15.0) 10/08/17 07:35 INR 1.07 (0.83-1.16) 10/08/17 07:35 - Physical Exam Constitutional: other (elderly, frail appearing) Eyes: PERRL, anicteric sclera, EOMI Cardiovascular: regular rate and rhythym, no murmur, rub, or gallop Respiratory: other (mild tachypnea, inspiratory crackles most prominent at bilateral bases, no wheezing) Gastrointestinal: normoactive bowel sounds, soft, non-tender abdomen, no palpable masses Skin: no rashes or abrasions, no fluctuance, no induration Neurologic: other (alert but not oriented, moving all extremities) Psychiatric: encephalopathic ICD10 Worksheet Patient Problems: Problems Problem Status Onset Altered mental status Acute
[2017-10-11] MEDS: INSULIN LISPRO 100 UNIT/ML SC SCH ×3 (10:31→18:05)
[2017-10-11] MEDS: levETIRAcetam 250 MG TAB PO SCH ×2 (10:32→18:19)
[2017-10-11] MEDS: ASPIRIN 81 MG CHEWABLE TAB PO SCH (10:32)
[2017-10-11] MEDS: DULoxetine 30 MG CAP PO SCH (10:32)
[2017-10-11] MEDS: CLOPIDOGREL BISULFATE 75 MG TAB PO SCH (10:32)
[2017-10-11] MEDS: FERROUS SULFATE 325 MG TAB PO SCH (10:33)
[2017-10-11] MEDS: ENOXAPARIN 40 MG/0.4 ML SYR SC SCH (10:33)
[2017-10-11] MEDS: MULTIVITAMINS 1 EACH TAB PO SCH (10:33)
[2017-10-11] MEDS: CYANO/VITAMIN B12 1000 MCG TAB PO SCH (10:33)
[2017-10-11] MEDS: METOPROLOL SUCCINATE XR 25 MG TAB PO SCH (10:33)
[2017-10-11] MEDS: PANTOPRAZOLE SODIUM 40 MG TAB PO SCH (10:37)
--- NOTE | 2017-10-11 15:43 | ASMTCMCOM ---
CM Note CM Note Notes: 10/11/2017 Case Management Note Met w/pt Suraj [phone] multiple times to discuss discharge needs. Suraj called [facility] and was told the authorization for [facility] is good through Oct.17. Jennifer from [facility] visited pt today and accepted pt. Suraj has hired a private caregiver for support. Pt is rarely left alone. Suraj feels his would benefit from skilled rehab. Case Management d/c poc: [facility]. Case Management to follow. 10/10/2017 CM Note Pt received auth from [facility] for SNF, pt's wanted referral to go to [facility]. Authorization# [id number] DC Plan: SNF Date Signed: 10/11/2017 03:43 PM Electronically Signed By:Joseline Grider RN
--- NOTE | 2017-10-11 16:06 | CPEKG ---
Test Reason : OPEN Blood Pressure : / mmHG Vent. Rate : 085 BPM Atrial Rate : 088 BPM P-R Int : 151 ms QRS Dur : 078 ms QT Int : 388 ms P-R-T Axes : 046 -58 -34 degrees QTc Int : 462 ms Sinus rhythm Left anterior fascicular block Probable anterior infarct, age indeterminate Non specific T wave inversions Confirmed by Christoph Barron ([id number]) on 10/11/2017 4:05:56 PM Referred By: Confirmed By:Christoph Barron
[2017-10-11] MEDS: ATORVASTATIN CALCIUM 20 MG TAB PO SCH (20:21)
[2017-10-11] MEDS ORDERED: INSULIN GLARGINE 100 UNITS/ML UNIT SC SCH (21:00)
[2017-10-12] MEDS: LEVOTHYROXINE 75 MCG TAB PO SCH (06:20)
[2017-10-12] MEDS: MULTIVITAMINS 1 EACH TAB PO SCH (08:36)
[2017-10-12] MEDS: ASPIRIN 81 MG CHEWABLE TAB PO SCH (08:36)
[2017-10-12] MEDS: CYANO/VITAMIN B12 1000 MCG TAB PO SCH (08:37)
[2017-10-12] MEDS: CLOPIDOGREL BISULFATE 75 MG TAB PO SCH (08:37)
[2017-10-12] MEDS: DULoxetine 30 MG CAP PO SCH (08:45)
[2017-10-12] MEDS: PANTOPRAZOLE SODIUM 40 MG TAB PO SCH (08:46)
[2017-10-12] MEDS: FERROUS SULFATE 325 MG TAB PO SCH (08:46)
[2017-10-12] MEDS: METOPROLOL SUCCINATE XR 25 MG TAB PO SCH (08:46)
[2017-10-12] MEDS: levETIRAcetam 250 MG TAB PO SCH ×2 (08:52→17:35)
[2017-10-12] MEDS: ENOXAPARIN 40 MG/0.4 ML SYR SC SCH (08:53)
[2017-10-12] MEDS: INSULIN LISPRO 100 UNIT/ML SC SCH ×3 (09:20→17:34)
--- NOTE | 2017-10-12 09:24 | CPEKG ---
Test Reason : OPEN Blood Pressure : / mmHG Vent. Rate : 068 BPM Atrial Rate : 068 BPM P-R Int : 154 ms QRS Dur : 088 ms QT Int : 438 ms P-R-T Axes : 032 -36 -39 degrees QTc Int : 466 ms Sinus rhythm Left axis deviation Probable anterior infarct, age indeterminate Unchanged from prior Confirmed by Christoph Barron ([id number]) on 10/12/2017 9:24:32 AM Referred By: Confirmed By:Christoph Barron
--- NOTE | 2017-10-12 13:38 | HOSPPROG ---
Hospitalist Progress Note Assessment/Plan: #Chest pain: Do not think truly having chest pain as she answers "yes" when asked about pain in any area. ECG without acute ischemia, trops negative. - Uptitrated beta dwayne for anti-anginal effect #Hyponatremia: Na 130 this AM, downtrending recently with IVF. Urine studies c/ w SIADH - Fluid restrict, recheck #Diabetes with hyperglycemia: BG elevated in setting of inability to use in insulin pump. Biggest issue with fasting BG. - Increase glargine to 20u qhs, continue high dose SSI #Hyperkalemia: K 5.2 this AM. Suspect spurious as down to 4.4 on recheck. #Chronic respiratory failure: Reportedly has pulmonary fibrosis. On baseline 2- 3L NC. #Acute vs Subacute CVA: Involving cerebellar and parietal regions. Manifestations per below. Unclear source. - Cont Plavix and Aspirin #Generalized weakness, impaired ambulation, impaired mentation, impaired language functions, impaired left upper extremity weakness. - PT/OT recommending SNF, pt's now agreeable to this, CM following #Hx of Hemorrhagic Stroke: She is not a candidate for therapeutic AC #Recent NSTEMI: Diagnosed at [facility] w/i the last few days, apparently refused angiography and I re-affirmed this with this admission. - Cont with Plavix and Aspirin, statin #HTN: BP mildly elevated but within reasonable range for her age - Cont BB, high threshold to add additional agent #Leukocytosis: Improved. Etiology unclear, afebrile, procalcitonin negative. - Monitor #Seizure disorder: cont Abena Noland DNR Dispo: remain inpatient for mgmt of electrolyte disturbances, hyperglycemia, chest pain. hopefully discharge to SNF tomorrow Subjective: She feels that she is in the wrong place. She answers "yes" to almost any question I ask her re: pain, including chest pain, abdominal pain, leg pain, shoulder pain, headache. She also reports feelign short of breath. Per caregiver at bedside, this is how she normally acts. Objective: Vital Signs Temp Pulse Resp BP Pulse Ox 36.6 C 75 18 94/55 L 94 10/12/17 11:04 10/12/17 11:04 10/12/17 11:04 10/12/17 11:04 10/12/17 11:04 Laboratory Results 10/12/17 04:10 10/12/17 11:48 10/11/17 10/12/17 10/13/17 05:59 05:59 05:59 Intake Total 700 1700 Output Total 100 Balance 700 1700 -100 PT 14.1 SEC (12.0-15.0) 10/08/17 07:35 INR 1.07 (0.83-1.16) 10/08/17 07:35 - Physical Exam Constitutional: other (frail, elderly) Ears, Nose, Mouth, Throat: moist mucous membranes, hearing normal, ears appear normal, no oral mucosal ulcers Cardiovascular: regular rate and rhythym, no murmur, rub, or gallop Respiratory: no respiratory distress, other (inspiratory crackles - stable from prior, no wheezes, no distress) Gastrointestinal: normoactive bowel sounds, soft, non-tender abdomen, no palpable masses Skin: no rashes or abrasions, no fluctuance, no induration Neurologic: other (alert, not oriented, moving all extremities) Psychiatric: encephalopathic ICD10 Worksheet Patient Problems: Problems Problem Status Onset Altered mental status Acute
[2017-10-12] MEDS ORDERED: INSULIN GLARGINE 100 UNITS/ML UNIT SC SCH (13:39)
[2017-10-12] MEDS ORDERED: MAGNESIUM HYDROXIDE 30 ML UDCUP PO PRN (16:27)
[2017-10-12] MEDS ORDERED: POLYETHYLENE GLYCOL 3350 17 GM PKT PO PRN (16:27)
[2017-10-12] MEDS: ATORVASTATIN CALCIUM 20 MG TAB PO SCH (19:26)
[2017-10-12] MEDS: SENNOSIDES/DOCUSATE SODIUM TAB PO SCH (19:26)
[2017-10-13] MEDS ORDERED: INSULIN GLARGINE 100 UNITS/ML UNIT SC SCH (08:06)
[2017-10-13] MEDS: levETIRAcetam 250 MG TAB PO SCH (08:43)
[2017-10-13] MEDS: ASPIRIN 81 MG CHEWABLE TAB PO SCH (08:44)
[2017-10-13] MEDS: CLOPIDOGREL BISULFATE 75 MG TAB PO SCH (08:44)
[2017-10-13] MEDS: DULoxetine 30 MG CAP PO SCH (08:44)
[2017-10-13] MEDS: CYANO/VITAMIN B12 1000 MCG TAB PO SCH (08:45)
[2017-10-13] MEDS: LEVOTHYROXINE 75 MCG TAB PO SCH (08:45)
[2017-10-13] MEDS: FERROUS SULFATE 325 MG TAB PO SCH (08:45)
[2017-10-13] MEDS: ENOXAPARIN 40 MG/0.4 ML SYR SC SCH (08:47)
[2017-10-13] MEDS: SENNOSIDES/DOCUSATE SODIUM TAB PO SCH (08:51)
[2017-10-13] MEDS: PANTOPRAZOLE SODIUM 40 MG TAB PO SCH (08:51)
[2017-10-13] MEDS: MULTIVITAMINS 1 EACH TAB PO SCH (08:52)
[2017-10-13] MEDS: METOPROLOL SUCCINATE XR 25 MG TAB PO SCH (08:52)
[2017-10-13] MEDS: INSULIN LISPRO 100 UNIT/ML SC SCH ×2 (08:59→12:51)
--- NOTE | 2017-10-13 11:27 | PDIAF ---
- Diagnosis Code Status: Do Not Resuscitate - Medication Management Discharge Medications: Medications to Continue on Transfer Aspirin [Aspirin 81mg (*)] 81 mg PO DAILY 10/08/17 [Last Taken 10/07/17] Atorvastatin Calcium [Lipitor 20 mg (*)] 20 mg PO HS 10/08/17 [Last Taken ] Clopidogrel Bisulfate [Plavix (*)] 75 mg PO DAILY 10/08/17 [Last Taken 10/07/17] Cyanocobalamin [Vitamin B12 (*)] 1,000 mcg PO DAILY 10/08/17 [Last Taken ] DULoxetine [Cymbalta 30 MG (*)] 30 mg PO DAILY 10/08/17 [Last Taken 10/07/17] Ferrous Sulfate [Ferrous Sulf 325 MG (*)] 325 mg PO DAILY 10/08/17 [Last Taken 10/07/17] Herbals/Supplements -Info Only 1 ea PO DAILY 10/08/17 [Last Taken Unknown] Hydrocortisone 2.5% [Hydrocortisone 2.5% cream (*)] 1 estefany TP TID PRN 10/08/17 [ Last Taken Unknown] Levothyroxine [Synthroid 75 mcg (*)] 75 mcg PO DAILY06 10/08/17 [Last Taken ] Metoprolol Succinate Xr [Toprol Xl 25 mg (*)] 12.5 mg PO DAILY 10/08/17 [Last Taken 10/07/17] Multivitamins [Multivitamin (*)] 1 each PO DAILY 10/08/17 [Last Taken Unknown] Pantoprazole Sodium [Protonix 40mg (*)] 40 mg PO DAILY 10/08/17 [Last Taken ] levETIRAcetam [Keppra Oral Liquid] 250 mg PO BIDMEAL 10/08/17 [Last Taken 18:00] Arnicare Gel 1 estefany TP Q4 PRN 10/10/17 [Last Taken Unknown] Insulin Glargine [Lantus Syringe] 24 units SC HS unit 10/13/17 [Last Taken Unknown] Insulin Lispro [HumaLOG LISPRO] 0 unit SC TIDMEAL unit 10/13/17 [Last Taken Unknown] Discharge Medications: Refer to the Discharge Home Medication list for PRN reason. - Orders Services needed: Physical Therapy, Occupational Therapy, Speech Language Pathologist Diet Texture: Dysphagia 3 - Advanced - Moist, Bite-Size, Thin Liquids, Meds Crushed in Puree Additional Instructions: 1.[facility] a [facility]. 2.Because we are no longer able to reliably use your insulin pump, we have started you on long and short acting insulin. We recommend that you continue to check your blood sugars with meals and before bed. 3.We have discontinued your losartan for your blood pressure, which has been low at times. 4.We have increased your metoprolol, which should help with any chest pain symptoms that you are having. 5. Continue to wear your oxygen at 2-3L/min at all times. - Follow Up Care Current Providers and Referrals: Patient,NotPresent [Unknown] - As per Instructions
[2017-10-13 11:28] VITALS: BP 104/55
--- NOTE | 2017-10-13 11:39 | PDIAF ---
- Diagnosis Code Status: Do Not Resuscitate - Medication Management Discharge Medications: Medications to Continue on Transfer Aspirin [Aspirin 81mg (*)] 81 mg PO DAILY 10/08/17 [Last Taken 10/07/17] Atorvastatin Calcium [Lipitor 20 mg (*)] 20 mg PO HS 10/08/17 [Last Taken ] Clopidogrel Bisulfate [Plavix (*)] 75 mg PO DAILY 10/08/17 [Last Taken 10/07/17] Cyanocobalamin [Vitamin B12 (*)] 1,000 mcg PO DAILY 10/08/17 [Last Taken ] DULoxetine [Cymbalta 30 MG (*)] 30 mg PO DAILY 10/08/17 [Last Taken 10/07/17] Ferrous Sulfate [Ferrous Sulf 325 MG (*)] 325 mg PO DAILY 10/08/17 [Last Taken 10/07/17] Herbals/Supplements -Info Only 1 ea PO DAILY 10/08/17 [Last Taken Unknown] Hydrocortisone 2.5% [Hydrocortisone 2.5% cream (*)] 1 estefany TP TID PRN 10/08/17 [ Last Taken Unknown] Levothyroxine [Synthroid 75 mcg (*)] 75 mcg PO DAILY06 10/08/17 [Last Taken ] Metoprolol Succinate Xr [Toprol Xl 25 mg (*)] 12.5 mg PO DAILY 10/08/17 [Last Taken 10/07/17] Multivitamins [Multivitamin (*)] 1 each PO DAILY 10/08/17 [Last Taken Unknown] Pantoprazole Sodium [Protonix 40mg (*)] 40 mg PO DAILY 10/08/17 [Last Taken ] levETIRAcetam [Keppra Oral Liquid] 250 mg PO BIDMEAL 10/08/17 [Last Taken 18:00] Arnicare Gel 1 estefany TP Q4 PRN 10/10/17 [Last Taken Unknown] Insulin Glargine [Lantus Syringe] 24 units SC HS unit 10/13/17 [Last Taken Unknown] Insulin Lispro [HumaLOG LISPRO] 0 unit SC TIDMEAL unit 10/13/17 [Last Taken Unknown] Polyethylene Glycol 3350 [Miralax 17 gm (*)] 17 gm PO DAILY PRN pkt 10/13/17 [ Last Taken Unknown] Sennosides/Docusate Sodium [Senokot-S] 1 - 2 tab PO BID tab 10/13/17 [Last Taken Unknown] Discharge Medications: Refer to the Discharge Home Medication list for PRN reason. - Orders Services needed: Physical Therapy, Occupational Therapy, Speech Language Pathologist Diet Texture: Dysphagia 3 - Advanced - Moist, Bite-Size, Thin Liquids, Meds Crushed in Puree Additional Instructions: 1.You will be discharging to a care home facility for ongoing rehabilitation. 2.Because we are no longer able to reliably use your insulin pump, we have started you on long and short acting insulin. We recommend that you continue to check your blood sugars with meals and before bed. 3.We have discontinued your losartan for your blood pressure, which has been low at times. 4.We have increased your metoprolol, which should help with any chest pain symptoms that you are having. 5. Continue to wear your oxygen at 2-3L/min at all times. - Follow Up Care Current Providers and Referrals: Patient,NotPresent [Unknown] - As per Instructions
--- NOTE | 2017-10-13 15:48 | PDDCSUM ---
Discharge Summary Discharge Summary: Date of Admission: 10/08/2017 Date of Discharge: 10/13/2017 Disposition: [facility] SNF for ongoing therapy needs Consultants: neurology Procedures/Studies: MRI brain, TTE Discharge Diagnoses: 1. Acute vs subacute ischemic CVA 2. Acute on chronic encephalopathy 3. Deconditioning 4. Chest pain 5. Recent NSTEMI 6. Hyponatremia 2/2 SIADH 7. Diabetes with hyperglycemia 8. Chronic respiratory failure 9. H/o hemorrhagic CVA 10. Seizure d/o 11. HTN 12. Diastolic dysfunction, mild Brief Hospital Course by Problem: 1. Acute vs subacute ischemic CVA: Involving cerebellar and parietal regions. Did not receive tPA (unsure onset). Manifestations include inattention/ encephalopathy, mild ataxia. Discharged on dual antiplatelet therapy, which she was just started on for CAD. Neurology did not feel that anticoagulation was safe given her h/o hemorrhagic CVA. No embolic source was identified. 2. Acute on chronic encephalopathy: Prior to this hospitalization, states that she is usually slow to respond/difficulty with language but generally oriented; occasionally needs help with ADLs such as eating. Now, she is unable to answer orientation questions. This was likely precipitated by CVA. 3. Deconditioning: Related to multiple hospitalizations. PT/OT recommended SNF. 4. Chest pain: Do not think truly having chest pain as she answers "yes" when asked about pain in any area. ECG without acute ischemia, trops negative. Up- titrated beta dwayne. 5. Recent NSTEMI: Diagnosed at [facility] several days before this admission. Cardiology recommended angiography but patient declined. She was started on DAPT and statin which were continued. 6. Hyponatremia: Urine studies c/w SIADH. Na 130-135. She was not drinking very much so difficult to restrict PO. Consider salt tabs in future if dropping. 7. Diabetes with hyperglycemia: Patient unable to use insulin pump (which she's been on for 20+ years) due to encephalopathy. Discharged on basal-bolus insulin (glargine 24u, SSI); insulin pump discontinued. 8. Chronic respiratory failure: Reportedly has some underlying lung disease (? IPF) but I was unable to confirm this as do not have prior records. Elevated RVSP on TTE indicationg pulmonary hypertension. On baseline 2-3L NC. 9. Hx of hemorrhagic Stroke: s/p right craniotomy. This was roughly 5 years ago. She is not a candidate for therapeutic AC. Residual LUE weakness and language issues. 10. Seizure disorder: Related to hemorrhage. Continued keppra. 11. HTN: Controlled with BB. 12. Diastolic dysfunction: Noted on TTE. She is euvolemic. Not on diuretics. Medications: Please refer to EMR. Additions this hospitalization include glargine and lispro (with removal of insulin pump), metoprolol. Losartan was discontinued. Follow Up Plan: 1. Recheck BMP in 2 weeks to assess sodium level. Consider addition of salt tabs if low. 2. Monitor blood glucose and titrate insulin accordingly. Would shoot for higher target A1c to avoid hypoglycemia in this elderly patient with multiple comorbidities 3. PCP clinic visit within 1-2 weeks. Would strongly recommend involving palliative care 4. Could consider cardiac event monitor to evaluate for occult atrial fibrillation as the etiology of her strokes; however, as above, she is not a candidate for anticoagulation and thus finding atrial fibrillation wouldn't necessarily international exchange coordinator. Physical Exam: Vitals reviewed, stable. Patient alert but not oriented, moving all extremities with mild LUE weakness. Answering questions with one word answers. Heart regular, lungs with inspiratory crackles (stable), abdomen soft and nontender, no lower extremity edema.
--- NOTE | 2017-10-14 15:22 | ASDISCHSUM ---
Discharge Information Plan Status:SNF Medically Cleared to Leave:10/14/2017 Discharge Date:10/13/2017 04:31 PM D/C Disposition:Long-Term Facility ADT D/C Disposition:Long-Term Facility Projected Discharge Date:10/11/2017 11:00 AM Transportation at D/C:Wheelchair Van Discharge Delay Reason: Follow-Up Date:10/11/2017 11:00 AM Discharge Slot: Final Diagnosis: Placement Information Referral Type:*Home Health Care Services Ref[facility] ID:[id number] Provider Name: Address 1: Phone Number: Address 2: Fax Number: City: Selection Factors: State: Referral Type:*Long Term/SNF Referral ID:[id number] Provider Name:yKung Calhoun Benjamin Address 1:[address] [facility] Phone Number: Address 2: Fax Number: [facility] Selection Factors: State:[place] Patient Contact Information Contact Name:ANGELLA Relationship: Address:[address] [place] [address] City:[place] Alternate Phone: State/Zip Code:[place] [address] Email: Financial Information Financial Class:Medicare Advantage Plans Primary Plan Desc:[employer] ADV IP Primary Plan Number:[id number] Secondary Plan Desc: Secondary Plan Number: Assessment Information LACE LACE Length of stay for Answers: 4-6 days current admission Acuity / Level of Answers: Yes Care: Did the patient have an inpatient admission? Comorbidities - select Answers: Cerebrovascular disease all that apply (CVA, TIA, aneurysms, vasc ular dementia) Dementia Diabetes (uncontrolled or controlled) # of Emergency department Answers: 1-2 visits in the last 6 months Score: 13 Date Signed: 10/14/2017 03:22 PM Electronically Signed By:Joseline Grider RN [facility] CM Progress Note CM Note CM Note Notes: Spoke to pt and re; dc poc. PT recommending SNF, pt's politely declines in large part because of pt's insulin pump. He does not feel that a rehab can adequately monitor it there. He prefers pt to return home with [facility] and their private pay caregiver who is there 8hrs/day 5 days/week. DC Plan: Homecare/ [facility] + private caregiver Date Signed: 10/09/2017 03:06 PM Electronically Signed By:Sandra Villegas RN [facility] Progress Note CM Note CM Note Notes: Pt's wanted to speak with CM again, he talked with pt's sister and they think that SNF is a better idea, CM will send referral to [place] for authorization. Date Signed: 10/09/2017 04:55 PM Electronically Signed By:Sandra Villegas RN [facility] Progress Note CM Note CM Note Notes: Pt received auth from [place] for SNF, pt's wanted referral to go to [facility]. Authorization# [id number] DC Plan: SNF Date Signed: 10/10/2017 03:20 PM Electronically Signed By:Sandra Villegas RN [facility] Progress Note CM Note CM Note Notes: 10/11/2017 Case Management Note Met w/pt Suraj [phone] multiple times to discuss discharge needs. Suraj called [employer] and was told the authorization for [facility] is good through Oct.17. Jennifer from [facility] visited pt today and accepted pt. Suraj has hired a private caregiver for support. Pt is rarely left alone. Suraj feels his would benefit from skilled rehab. Case Management d/c poc: [facility]. Case Management to follow. 10/10/2017 CM Note Pt received auth from [employer] for SNF, pt's wanted referral to go to [facility]. Authorization# [id number] DC Plan: SNF Date Signed: 10/11/2017 03:43 PM Electronically Signed By:Joseline Grider RN Intervention Information Intervention Type:*IM-Signed Date of Service:10/13/2017 12:11 PM Patient Type:Inpatient Staff Member:JULES Grider, Joseline Hours: Discipline: Severity: Comment:
== END 2017-10-13 16:31 | DRG 64 ==
LOC: OBSVTOIN 09:51 → F3E 11:44 → F3N 10-10 14:21 → F2W 10-11 08:00
PROVIDERS: ADMIT Internal Medicine; ATTEND Internal Medicine
DX: I63.9 Cerebral infarction, unspecified (principal); I21.9 Acute myocardial infarction, unspecified; G93.49 Other encephalopathy; E87.1 Hypo-osmolality and hyponatremia; J96.10 Chronic respiratory failure, unspecified whether with hypoxia or hypercapnia; G40.89 Other seizures; E86.9 Volume depletion, unspecified; E11.65 Type 2 diabetes mellitus with hyperglycemia; I10 Essential (primary) hypertension; R27.0 Ataxia, unspecified; Z86.73 Personal history of transient ischemic attack (TIA), and cerebral infarction without residual deficits; Z79.4 Long term (current) use of insulin; Z96.41 Presence of insulin pump (external) (internal); Z66 Do not resuscitate
CPT/HCPCS: 82435-PO; 82565-PO; 82947-PO; 84132-PO; 84295-PO; 84484-PO; 84520-PO; 85014-PO; 92507-GN; 92523-GN; 92526-GN; 92610-GN; 97110-GP; 97116-GP; 97162-GP; 97166-GO; 97530-GP; 97535-GO; G8987-GO-CL; G8988-GO-CK; J1650; J1815